=== PATIENT | male | born 1955 | race Caucasian/White ===

== ENCOUNTER 2022-10-11 08:16 | Day surgery (SDC) | payer MEDICARE, OTHER ==
[~2022-10-11] VITALS: Ht 182.9 cm; Wt 107.0 kg
[~2022-10-11 08:16] MED LIST: AMLODIPINE-VAL1 EAC2 PO; B COMPLEX1 EACH PO; COQ1050 MG PO; ESOMEPRAZOLE MA40 MG PO; HYDROCHLOROTHIA25 MG PO; LIPITOR40 MG PO; MAGNESIUM CITR100 MG PO; VITAMIN A AND1 EACH PO
--- NOTE | 2022-10-11 12:15 | NUR ---
10/11/22 1215 Nara Clemons 1029 PT ARRIVED IN PACU SLEEPY WITH NO C/O'S. ABD SOFT AND PASSING FLATUS. 1045 RESTING. REU. 1100 AWAKE TALKING TO STAFF. 1115 PT GETTING DRESSED. 1129 DC INSTRUCTIONS GIVEN. ALL QUESTIONS ANSWERED. LEFT VIA W/C.
--- NOTE | 2022-10-12 08:09 | OR ---
[facility] [address], [place] [address] Signed DATE OF OPERATION: 10/11/2022 SURGEON: Sierra Engle MD PREOPERATIVE DIAGNOSES: 1. Personal history of colonic polyps. 2. Father with a history of colonic polyps in his 50s or 60s. POSTOPERATIVE DIAGNOSES: 1. Jvuffsf-ig-chzhvean sigmoid diverticulosis. 2. A 4 mm cecal polyp. 3. Bczadvp-fa-fnkxblsv external hemorrhoids. 4. Long redundant colon. PROCEDURE: Colonoscopy with hot biopsy. ESTIMATED BLOOD LOSS: None. INDICATIONS: Cornell is a 67-year-old gentleman asked to see me for a followup colonoscopy. He had lived in [place] for many years for his employment. He has now returned home to [place], [place]. He remembers colonoscopies clear back at age 51 while in [place]. He recalls having polyps removed from his very first colonoscopy. He had been asked to follow up in three years. After that, he did well and they asked him to come every five years. He did not have his records with him in the office and we are still trying to track those down. He did recall his most recent colonoscopy in 2018 at the age of 62 [address] Tonio Singh in [place], [place]. He remembers being told to come back in 5 years. He has no lower GI complaints. He believes his father had colonic polyps in his 50s or 60s. In the office, I gave Cornell a pamphlet on colonoscopy. We had reviewed the nature of that test. He understands there is risk including, but not limited to gas bloating, crampy abdominal pain, bleeding, perforation requiring surgery, and missed diagnosis. We also reviewed the need for IV conscious sedation. He had expressed understanding and wished to proceed. DESCRIPTION OF PROCEDURE: Cornell was taken into our endoscopy suite and placed in the left lateral decubitus position. He was given a total of 7 mg of Versed and 100 mcg of fentanyl to cover the case. A digital rectal exam was performed. He does have atabvke-ca-krctwbaq Electronically Signed By: SIERRA ENGLE MD 10/12/22 0809 PATIENT NAME: CORNELL TRAN OPERATIVE REPORT DATE OF : 59 REPORT #: [id number] PHYSICIAN: SIERRA ENGLE MD PCP: CULLEN WEBSTER REPORT IS CONFIDENTIAL AND NOT TO BE RELEASED WITHOUT AUTHORIZATION [facility] [address], [place] [address] Signed circumferential external hemorrhoids. Good sphincter tone. We did not specifically palpate the prostate today. The adult colonoscope had been introduced and advanced all around into the cecum under direct visualization of the camera. We found that he does have a long redundant colon. We eventually made it to his cecum with additional sedation abdominal compression. His prep was moderate. He probably be better served with some additional bowel prep in the future. We could easily see the appendiceal orifice and the ileocecal valve after some irrigation and suction. He had just a small 4 mm polyp in the base of the cecum a couple of centimeters away from the appendiceal orifice. It was easily removed with the help of hot biopsy forceps. The scope was then slowly withdrawn. We found that he does have some diverticula in the sigmoid colon. They were qjnuozu-qe-wpjzcgrh in size, ysblnpl-an-hqlzodkb in number, and scattered about. Once done in the rectum, the scope was retroflexed, and we really did not see any evidence of internal hemorrhoids. After this, the gas was suctioned out and the colonoscope removed. Cornell tolerated the procedure quite well. RECOMMENDATIONS: I will see Cornell back in my office in 7 to 14 days to review his results. It looks like he will need to stay on the five year plan. He probably needs some extra bowel prep based on his long redundant colon. Sierra Engle MD ALB/MODL /[id number] cc: Sierra Engle MD Patient Chart Dr. Miguel Ángel Augustin Copies: SIERRA ENGLE MD ~ Electronically Signed By: SIERRA ENGLE MD 10/12/22 0809 PATIENT NAME: CORNELL TRAN OPERATIVE REPORT DATE OF : 59 REPORT #: [id number] PHYSICIAN: SIERRA ENGLE MD PCP: CULLEN WEBSTER REPORT IS CONFIDENTIAL AND NOT TO BE RELEASED WITHOUT AUTHORIZATION
--- NOTE | 2022-10-13 14:27 | PATH ---
[facility] [address], [place] [address] Signed SPECIMEN(S): A CECUM POLYP SPECIMEN SOURCE: A. CECUM POLYP CLINICAL HISTORY: Colonoscopy. Personal history colon polyps, family history colon polyps, external hemorrhoids, diverticulosis, cecal polyp. FINAL PATHOLOGIC DIAGNOSIS: Cecum polyp: - Serrated polyp / adenoma (one fragment). JVR:gaurang:C2NR MICROSCOPIC EXAMINATION: Histologic sections of all submitted blocks are examined by light microscopy. These findings, together with the gross examination, support the pathologic diagnosis. GROSS DESCRIPTION: The specimen, labeled and designated "tomasz Montero polyp," is received in formalin and consists of one torres soft tissue fragment, 0.2 cm. The specimen is entirely submitted in (A1). HH (under the direct supervision of a pathologist) The Gross Description was prepared using a voice recognition system. The report was reviewed for accuracy; however, sound-alike word errors, addition and/or deletions may occur. If there is any question about this report, please contact Client Services. PERFORMING LABORATORY: The technical component was performed by [facility] [employer], [address] [place] [id number] (CLIA# [id number]). Professional interpretation was performed by [employer] Pathology - [facility], [address] [place] [id number] (CLIA#: [id number]). Diagnostician: Keshawn Ford MD Pathologist Electronically Signed 10/13/2022 PATIENT NAME: ELYSSA MONTERO PATHOLOGY DATE OF : 59 REPORT #: [id number] PHYSICIAN: JOSÉ ANTONIO WOODY PCP: CULLEN WEBSTER REPORT IS CONFIDENTIAL AND NOT TO BE RELEASED WITHOUT AUTHORIZATION
== END 2022-10-11 11:29 | disposition home or self-care (01) ==
LOC: DS 08:16
PROVIDERS: ATTEND Colon & Rectal Surgery
PROC: 0DBH8ZZ Excision of Cecum, Via Natural or Artificial Opening Endoscopic (ICD-10-PCS; principal; 2022-10-11 09:45)
DX: D12.0 Benign neoplasm of cecum (principal); K57.30 Diverticulosis of large intestine without perforation or abscess without bleeding; Z86.010 Personal history of colon polyps; Z83.71 Family history of colonic polyps; K63.89 Other specified diseases of intestine; K64.4 Residual hemorrhoidal skin tags
CPT/HCPCS: 99153; G0500; J2250; J3010; J7121

== ENCOUNTER 2024-11-04 05:58 | Day surgery (SDC) | payer MEDICARE, OTHER ==
[2024-10-28 10:36] VITALS: BP 134/79
[~2024-11-04] VITALS: Ht 182.9 cm; Wt 102.0 kg
[~2024-11-04 05:58] MED LIST changes: +ALLOPURINOL300 MG PO; +AZO D-MANNOSE500 MG PO; +CEFAZOLIN SODIUM 2 GM/20 ML SYR ONE; +FLOMAX0.4 MG PO; +IMPOYZ100 GM TP; +LACTATED RINGER'S 1,000 ML IV SCH; +VITAMIN C250 MG PO
[2024-11-04 06:06] VITALS: BP 125/73
[2024-11-04] MEDS ORDERED: propofoL 200 MG/20 ML VIAL ONE (06:49)
[2024-11-04] MEDS ORDERED: MIDAZOLAM HCL 2 MG/2 ML VIAL ONE (06:49)
[2024-11-04] MEDS ORDERED: DEXAMETHASONE SOD PHOS 4 MG/ML VIAL ONE (06:49)
[2024-11-04] MEDS ORDERED: KETOROLAC TROMETHAMINE 30 MG/ML VIAL ONE (06:49)
[2024-11-04] MEDS ORDERED: LACTATED RINGER'S 1,000 ML IV ONE (06:49)
[2024-11-04] MEDS ORDERED: fentaNYL citrate 100 MCG/2 ML VIAL ONE (06:49)
[2024-11-04] MEDS ORDERED: ondansetron HCL 4 MG/2 ML VIAL ONE (06:49)
[2024-11-04] MEDS ORDERED: FAMOTIDINE 20 MG/ 2 ML VIAL ONE (06:49)
[2024-11-04] MEDS ORDERED: METOCLOPRAMIDE HCL 10 MG/2 ML SDV ONE (06:49)
[2024-11-04] MEDS ORDERED: IBLOOD GLUCOSE TEST STRIP 1 EA TEST VI PRN ×2 (07:00→08:30)
[2024-11-04] MEDS ORDERED: LIDOCAINE HCL 1% 5 ML SDV INJ ONE (07:00)
[2024-11-04] MEDS ORDERED: CEFAZOLIN SODIUM 2 GM/20 ML SYR IV SCH (07:00)
[2024-11-04] MEDS ORDERED: iopamidoL 30 ML VIAL ONE (07:09)
[2024-11-04] MEDS ORDERED: OXYCODONE/APAP 5/325 TAB PO PRN (07:30)
[2024-11-04] MEDS ORDERED: HYDROmorphone HCL 1 MG/ML SYR IV PRN (07:30)
[2024-11-04] MEDS ORDERED: ondansetron HCL 4 MG/2 ML VIAL IV PRN ×2 (07:30→08:30)
[2024-11-04] MEDS ORDERED: KETOROLAC TROMETHAMINE 15 MG/ML VIAL IV PRN (07:30)
[2024-11-04] MEDS ORDERED: PHENAZOPYRIDINE HCL 100 MG TAB PO ONE (07:30)
[2024-11-04] MEDS ORDERED: droPERidol 5 MG/2 ML VIAL IV PRN (08:30)
[2024-11-04] MEDS ORDERED: fentaNYL citrate 50 MCG/ML SDV IV PRN (08:30)
[2024-11-04] MEDS ORDERED: MORPHINE SULFATE 10 MG/ML VIAL IV PRN (08:30)
[2024-11-04] MEDS ORDERED: METOCLOPRAMIDE HCL 10 MG/2 ML SDV IV PRN (08:30)
[2024-11-04] MEDS ORDERED: PROCHLORPERAZINE EDISYLATE 10 MG/2 ML VIAL IV PRN (08:30)
[2024-11-04] MEDS ORDERED: NALOXONE HCL 0.4 MG SYR IV PRN (08:30)
[2024-11-04] MEDS ORDERED: ePHEDrine sulfate 50 MG/ML AMP ONE (08:35)
[2024-11-04] MEDS ORDERED: ROCURONIUM BROMIDE 50 MG/5 ML SYR ONE (08:45)
[2024-11-04] MEDS ORDERED: SUGAMMADEX SODIUM 200 MG/2 ML ML ONE (08:45)
[2024-11-04] MEDS ORDERED: SUCCINYLCHOLINE IN 0.9% NACL 200 MG/10 ML SYRINGE ONE (08:45)
--- NOTE | 2024-11-04 09:20 | NUR ---
11/04/24 0920 Rocio Rico OXYGEN SATURATION REMAINS 100% ON 10L VIA MASK. OXYGEN IS DISCONTINUED AT THIS TIME.
[2024-11-04 09:35] VITALS: BP 119/63
--- NOTE | 2024-11-04 09:35 | NUR ---
Patient returns to room 3 from PACU. Report taken from BLAKE Chan. Patient is awake and talking. He reports no pain or nausea. vital signs obtained. Patient has an indwelling ureteral stent that will be left in place until his next surgery that is to be scheduled. Water and applesauce provided to patient. I explained expectations to patient for the next hour and he expressed understanding. He states that he does not have the urge to void at this time. Call light within reach and bed in lowest position.
[2024-11-04] MEDS ORDERED: CIPRO500 MG PO (09:49)
[2024-11-04] MEDS ORDERED: OXYCODONE HCL5 MG PO (09:50)
[2024-11-04 10:35] VITALS: BP 121/67
--- NOTE | 2024-11-04 10:36 | NUR ---
Hourly rounding on patient. vital signs obtained. Patient states that he feels well still. no pain or nausea/vomiting noted. Patient thinks he may be able to urinate. At this time I let patient get dressed and then walked him to the bathroom. Patient was able to void about 150mL. IV removed. Discharge instructions reviewed with patient and his in detail. Prescriptions given to patient. Patient and expressed understanding of all discharge instructions. Patient was then discharged via wheelchair where his Brenna is to take him home
[2024-11-04] MEDS ORDERED: SEVOFLURANE 250 ML BTL INH ONE (13:06)
== END 2024-11-04 10:58 | disposition home or self-care (01) ==
LOC: OPS 05:58 → DS 05:58 → OPS 07:30 → DS 09:30 → OPS 10:58
PROVIDERS: ATTEND Urology
PROC: 0TC08ZZ Extirpation of Matter from Right Kidney, Via Natural or Artificial Opening Endoscopic (ICD-10-PCS; principal; 2024-11-04 07:30)
PROC: 0T768DZ Dilation of Right Ureter with Intraluminal Device, Via Natural or Artificial Opening Endoscopic (ICD-10-PCS; 2024-11-04 07:30)
DX: N20.0 Calculus of kidney (principal); I10 Essential (primary) hypertension; E78.5 Hyperlipidemia, unspecified; K21.9 Gastro-esophageal reflux disease without esophagitis; N40.0 Benign prostatic hyperplasia without lower urinary tract symptoms; Z79.899 Other long term (current) drug therapy; Z88.0 Allergy status to penicillin
CPT/HCPCS: 00910; 74420; 82365; C1769; C2617; J0330; J0690; J1100; J1885; J2250; J2405; J2704; J2765; J3010; J3490; J7121; Q9967

== ENCOUNTER 2024-11-27 06:00 | Day surgery (SDC) | payer MEDICARE, OTHER ==
[~2024-11-27] VITALS: Ht 182.9 cm; Wt 108.3 kg
[~2024-11-27 06:00] MED LIST changes: -CEFAZOLIN SODIUM 2 GM/20 ML SYR ONE; +CIPRO500 MG PO; +HYDROmorphone HCL 1 MG/ML SYR IV PRN; +KETOROLAC TROMETHAMINE 15 MG/ML VIAL IV PRN; +OXYCODONE HCL5 MG PO; +OXYCODONE/APAP 5/325 TAB PO PRN; +ondansetron HCL 4 MG/2 ML VIAL IV PRN
[2024-11-27 06:15] VITALS: BP 126/79
[2024-11-27] MEDS ORDERED: CEFAZOLIN SODIUM 2 GM/20 ML SYR IV SCH (07:00)
[2024-11-27] MEDS ORDERED: IBLOOD GLUCOSE TEST STRIP 1 EA TEST VI PRN ×2 (07:00→08:45)
[2024-11-27] MEDS ORDERED: LIDOCAINE HCL 1% 5 ML SDV INJ ONE (07:00)
[2024-11-27] MEDS ORDERED: iopamidoL 30 ML VIAL ONE (07:02)
[2024-11-27] MEDS ORDERED: propofoL 200 MG/20 ML VIAL ONE (07:28)
[2024-11-27] MEDS ORDERED: ACETAMINOPHEN 1,000 MG/100 ML VIAL ONE (07:28)
[2024-11-27] MEDS ORDERED: ondansetron HCL 4 MG/2 ML VIAL ONE (07:28)
[2024-11-27] MEDS ORDERED: DEXAMETHASONE SOD PHOS 4 MG/ML VIAL ONE (07:28)
[2024-11-27] MEDS ORDERED: dexmedeTOMIDine HCl 200 MCG/2 ML VIAL ONE (07:28)
[2024-11-27] MEDS ORDERED: LIDOCAINE HCL 2% 5 ML SDV ONE ×2 (07:28→07:50)
[2024-11-27] MEDS ORDERED: fentaNYL citrate 100 MCG/2 ML VIAL ONE (07:29)
[2024-11-27] MEDS ORDERED: MAGNESIUM SULFATE 1 GM/2 ML VIAL ONE (07:50)
[2024-11-27] MEDS ORDERED: SODIUM CHLORIDE 0.9% 20 ML IV ONE (08:07)
[2024-11-27] MEDS ORDERED: ePHEDrine sulfate 50 MG/ML AMP ONE (08:07)
[2024-11-27] MEDS ORDERED: ondansetron HCL 4 MG/2 ML VIAL IV PRN (08:45)
[2024-11-27] MEDS ORDERED: fentaNYL citrate 50 MCG/ML SDV IV PRN (08:45)
[2024-11-27] MEDS ORDERED: KETOROLAC TROMETHAMINE 30 MG/ML VIAL IV PRN (08:45)
[2024-11-27] MEDS ORDERED: NALOXONE HCL 0.4 MG SYR IV PRN (08:45)
--- NOTE | 2024-11-27 10:12 | NUR ---
[facility] WITH NO C/O'S. O2 SATS 92% ON ARRIVAL. 0955 O2 SATS DROPPED TO 88% ON RA. ENCOURAGED COUGH, DEEP BREATHING WITH INCREASE TO 89%. O2 @ 6L VIA MASK PLACED. SATS INCREASED TO 100%. 1012 PT MORE AWAKE AND TALKING TO STAFF. OXYGEN REMOVED. SATS 95% ON RA.
[2024-11-27 10:20] VITALS: BP 120/69
--- NOTE | 2024-11-27 10:22 | NUR ---
LE 1021: PT IS BACK TO DS FROM PACU. HE IS TOLERATING WATER. HE WOULD LIKE APPLE SAUCE TO SNACK ON. CALL LIGHT IS WITHIN REACH. IS AT THE BEDSIDE. DC CRITERIA IS REVIEWED.
[2024-11-27 11:17] VITALS: BP 136/75
--- NOTE | 2024-11-27 11:18 | NUR ---
LE 1110: PT INDICATES THAT HE WOULD LIKE TO GET UP TO USE THE BATHROOM. HE IS ASSITED UP OOB WITH STANDBY ASSITS HE ABMULATES TO THE BATHROOM. HE IS ABLE TO VOID AND AMBUALTES BACK TO HIS ROOM. LE 1117: HE IS TOLERATING WATER AND APPLE SAUCE, HE WOULD LIKE TO GO HOME AT [facility]. LE 1119: PT IS EDUCATED ON HOW TO BEST DRESS HIMSELF AND TO OPEN HIS CURTAIN WHEN READY.
--- NOTE | 2024-11-27 12:09 | NUR ---
LE 1127: PT IS GIVEN VERBAL AND WRITTEN DC INSTRUCTIONS. HE VERBALIZES UNDERSTANDING. QUESTIONS ARE ASKED AND ANSWERED. LE 1128: PT IS DC'D HOME VIA WC TO PERSONAL VEHICLE. HE IS ABLE TO TRANSFER HIMSELF WITHOUT ISSUES.
[2024-11-27] MEDS ORDERED: SEVOFLURANE 250 ML BTL INH ONE (13:59)
[2024-11-28 18:38] LABS: CALCULI MASS 60 mg (())
== END 2024-11-27 11:28 | disposition home or self-care (01) ==
LOC: DS 06:00
PROVIDERS: ATTEND Urology
PROC: BT1DZZZ Fluoroscopy of Right Kidney, Ureter and Bladder (ICD-10-PCS; 2024-11-27)
PROC: 0TC08ZZ Extirpation of Matter from Right Kidney, Via Natural or Artificial Opening Endoscopic (ICD-10-PCS; principal; 2024-11-27 07:30)
DX: N20.0 Calculus of kidney (principal); K21.9 Gastro-esophageal reflux disease without esophagitis; E78.5 Hyperlipidemia, unspecified; I10 Essential (primary) hypertension; R73.03 Prediabetes; N40.1 Benign prostatic hyperplasia with lower urinary tract symptoms; Z88.0 Allergy status to penicillin
CPT/HCPCS: 00918; 74420; 82365; 93005; 93010; C1769; C2617; J0131; J0690; J1100; J2003; J2405; J2704; J3010; J3475; J7121; Q9967

== ENCOUNTER 2025-04-03 14:22 | Emergency (ER) | payer MEDICARE, OTHER ==
[~2025-04-03] VITALS: Ht 182.9 cm; Wt 108.3 kg
--- NOTE | ~2025-04-03 | EKG ---
[facility] [address] [facility] [place], [place] [address] Draft EKG completed, results pending confirmation PATIENT NAME: ELYSSA TRAN Electrocardiogram DATE OF : 59 PHYSICIAN: PRELIMINARY REPORT #: [id number] REPORT IS CONFIDENTIAL AND NOT TO BE RELEASED WITHOUT AUTHORIZATION
[~2025-04-03 14:22] MED LIST changes: -HYDROmorphone HCL 1 MG/ML SYR IV PRN; -KETOROLAC TROMETHAMINE 15 MG/ML VIAL IV PRN; -LACTATED RINGER'S 1,000 ML IV SCH; -OXYCODONE/APAP 5/325 TAB PO PRN; -ondansetron HCL 4 MG/2 ML VIAL IV PRN
[2025-04-03 14:51] LABS: BASOPHILS 0.8 % (0.2-1.2); EOSINOPHILS 3.4 % (0.8-7.0); HEMOGLOBIN 13.6 g/dL (13.7-17.5); LYMPHOCYTES 21.9 % (21.8-53.1); MCH 31.1 PG (25.7-32.2); MCHC 34.9 g/dL (32.3-36.5); MCV 89.2 fL (79.0-92.2); MONOCYTES 7.7 % (5.3-12.2); PLATELET COUNT 312 K/uL (163-337); RBC 4.37 M/uL (4.63-6.08)
[2025-04-03 14:59] LABS: INR 1.04 (0.80-1.30); PROTIME 12.9 Sec (11.2-14.2)
[2025-04-03] MEDS ORDERED: APIXABAN 5 MG TAB PO ONE (15:15)
[2025-04-03] MEDS ORDERED: METOPROLOL TARTRATE 50 MG TAB PO ONE (15:15)
[2025-04-03 15:17] LABS: ALBUMIN 3.8 g/dL (3.4-5.0); ALBUMIN/GLOBULIN RATIO 1.27 (1.1-2.4); ANION GAP 13.2 (7-21); BILIRUBIN, TOTAL 0.6 mg/dL (0.2-1.0); BUN/CREATININE RATIO 24.61 (6.0-28.6); CALCIUM 9.4 mg/dL (8.5-10.1); CREATININE, SERUM 1.3 mg/dL (0.70-1.30); POTASSIUM 3.2 mmol/L (3.5-5.1); PROTEIN, TOTAL 6.8 g/dL (6.4-8.2)
[2025-04-03 15:18] LABS: TSH, 3RD GENERATION 1.671 uIU/mL (0.358-3.740)
[2025-04-03] MEDS ORDERED: dilTIAZem HCL 25 MG/5 ML VIAL IV ONE (16:15)
[2025-04-03] MEDS ORDERED: METOPROLOL TART25 MG PO (17:04)
[2025-04-03] MEDS ORDERED: ELIQUIS5 MG PO (17:04)
[2025-04-03 17:22] VITALS: BP 111/56
== END 2025-04-03 17:26 | disposition home or self-care (01) ==
LOC: ED 14:22
PROVIDERS: Emergency Medicine
DX: I48.92 Unspecified atrial flutter (principal); Z88.0 Allergy status to penicillin; Z79.899 Other long term (current) drug therapy
CPT/HCPCS: 36415; 71045; 80053; 84439; 84443; 84484; 85025; 85610; 93005; 93010; 96374; 99285-25